=== PATIENT | female | born 1980 | race Two or more races ===

== ENCOUNTER 2017-06-04 15:29 | Emergency (ER) | payer OTHER ==
[~2017-06-04] VITALS: Ht 160 cm; Wt 90.0 kg
[2017-06-04 16:00] VITALS: BP 126/69
== END 2017-06-04 21:41 | disposition left against medical advice (07) ==
LOC: ER 21:34
DX: O26.851 Spotting complicating pregnancy, first trimester (principal); Z3A.01 Less than 8 weeks gestation of pregnancy; Z53.21 Procedure and treatment not carried out due to patient leaving prior to being seen by health care provider